=== PATIENT | female | born 1965 | race Caucasian/White ===

== ENCOUNTER 2019-01-14 08:20 | Day surgery (SDC) | payer BC ==
[2018-05-04 06:32] VITALS: BMI 23.9
[2019-01-14] MEDS ORDERED: Sodium Chloride 0.9% 1,000 ML IV SCH (08:45)
[2019-01-14] MEDS ORDERED: Propofol 10 mg/ml Inj (20 ML) ONE ×3 (09:11→09:46)
[2019-01-14 09:20] VITALS: O2SAT 99
[2019-01-14 12:52] VITALS: BP 106/78; PULSE 57; RESP 18; TEMP 98
== END 2019-01-14 12:35 | disposition home or self-care (01) ==
LOC: ENDO 08:20
PROVIDERS: ATTEND Internal Medicine Gastroenterology
DX: K29.50 Unspecified chronic gastritis without bleeding (principal); Z12.11 Encounter for screening for malignant neoplasm of colon; K63.5 Polyp of colon; K64.1 Second degree hemorrhoids; R10.13 Epigastric pain; K59.00 Constipation, unspecified
CPT/HCPCS: 43239; 45381; 45385; 88305; 88342; J2001; J2704; J7030; J7040